=== PATIENT | female | born 1970 | race Caucasian/White ===

== ENCOUNTER 2019-05-03 17:47 | Emergency (ER) | payer OTHER ==
[~2019-05-03] VITALS: Ht 162.6 cm; Wt 59.0 kg
[2019-05-03] MEDS ORDERED: KEFLEX500 M1 PO (18:43)
[2019-05-03 18:51] VITALS: BP 111/73
== END 2019-05-03 18:53 | disposition home or self-care (01) ==
LOC: M.ERS 17:47
DX: S01.511A Laceration without foreign body of lip, initial encounter (principal); Z87.442 Personal history of urinary calculi; W54.0XXA Bitten by dog, initial encounter; Y93.89 Activity, other specified; Y92.89 Other specified places as the place of occurrence of the external cause; Y99.8 Other external cause status